=== PATIENT | male | born 2000 | race Caucasian/White ===

== ENCOUNTER 2022-08-31 22:24 | Emergency (ER) | payer OTHER, SELFPAY ==
[2022-08-31 22:31] VITALS: BP 124/93; PULSE 130; RESP 18; O2SAT 100; BMI 21.6
--- NOTE | 2022-08-31 23:02 | ED.GENADUL1 ---
HPI - General Adult General Chief complaint: Headache Stated complaint: HEADACHE Time Seen by Provider: 08/31/22 22:55 Source: patient Mode of arrival: walk-in Limitations: other Limitations comment: hearing impaired. 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 He recently had the exterior portion of the devices changed out but no intracranial procedures or surgery. A few days ago he developed headache along the right side of the head just above the cochlear implant. he was concerned that there might be infection of the skin along that area and came to our ED to get checked out. No visual changes or changes to the tones her hears. No fever or vomiting. No history of migraines or frequent headaches. He took some ibuprofen for the pain but nothing else. Related Data Home Medications Medication Instructions Recorded Confirmed No Known Home Medications 08/31/22 08/31/22 Allergies Allergy/AdvReac Type Severity Reaction Status Date / Time amoxicillin Allergy Severe Anaphylaxis Verified 08/31/22 22:40 [facility] Medical History (Updated 08/31/22 @ 23:03 by Tylor Byrd) Social History Smoking status: Never smoker Exam Narrative Exam Narrative: Nurses notes and vital signs reviewed and patient is not hypoxic. afebrile General: The patient appears well and in no apparent distress. Patient is resting comfortably on cart. Skin: Warm, dry, no pallor noted. The patient has no evidence of rash, petechiae, or purpura noted. Head: No sign of skin infectionor other abnromality around the cochlear implant. Scalp and face are normocephalic, atraumatic, no temporal arterial tenderness. Neck: Supple, trachea mid-line, no tenderness, no lymphadenopathy. No meningeal signs. No nuchal rigidity. Eye: Pupils are equal, round and reactive to light, EOMI Ears, Nose, Mouth, and Throat: Oral mucosa is moist, TMs are clear bilaterally, no hemotympanum noted. No sinus tenderness. Cardiovascular: Regular Rate and Rhythm Respiratory: Lungs are clear to auscultation, no wheezing, rales or rhonchi. No accessory muscle use. Neurological: A&O x4, normal equal forming fixer strength, normal finger to nose, no pronator drift. The patient is not ataxic. The patient has normal speech. The patient has normal coordination and gait. Normal motor and sensory observed. Psychiatric: Cooperative and interactive Constitutional Vital Signs - 24 hr 08/31/22 22:31 Pulse Rate [Monitor] 130 H Respiratory Rate 18 Blood Pressure [Left Arm] 124/93 H Pulse Oximetry 100 Oxygen Delivery Method Room Air Course Vital Signs Vital signs: Vital Signs Pulse Rate 130 H 08/31/22 22:31 Respiratory Rate 18 08/31/22 22:31 Blood Pressure 124/93 H 08/31/22 22:31 Pulse Oximetry 100 08/31/22 22:31 Oxygen Delivery Method Room Air 08/31/22 22:31 Pulse Rate 130 H 08/31/22 22:31 Respiratory Rate 18 08/31/22 22:31 Blood Pressure 124/93 H 08/31/22 22:31 Pulse Oximetry 100 08/31/22 22:31 Oxygen Delivery Method Room Air 08/31/22 22:31 Medical Decision Making MDM Narrative Medical decision making narrative: I saw and examined the patient. I do not see any sign of infection or inflammation along the scalp at the cochlear implant. The patient declined offer for head CT. He was given Tylenol and Zofran while in the ED and discharge home. He told me that he will see his specialist for follow up. Discharge Plan Discharge Chief Complaint: Headache Clinical Impression: Headache Patient Disposition: Home, Self-Care Time of Disposition Decision: 23:02 Condition: Good Prescriptions / Home Meds: No Action No Known Home Medications Instructions: Acute Headache (ED) Stand Alone Forms: Portal Instructions Referrals: Physician,Non-Staff, MD [Primary Care Provider] - 1 week
--- NOTE | 2022-08-31 23:03 | PC.NURSE ---
pt reports he recently had cochlear implant changed and since then has had constant headache that does not improve
[2022-08-31] MEDS: ONDANSETRON 4 MG RAPDIS TABLET SL (23:14)
[2022-08-31] MEDS: ACETAMINOPHEN 500 MG TABLET 1000 MG PO (23:14)
== END 2022-08-31 23:29 | disposition home or self-care (01) ==
PROVIDERS: Emergency Provider Emergency Medicine
DX: R51.9 Headache, unspecified (principal); Z96.21 Cochlear implant status
CPT/HCPCS: 99283